=== PATIENT | male | born 1940 | race Caucasian/White ===

== ENCOUNTER 2019-01-05 12:02 | Emergency (ER) | payer MEDICARE, OTHER ==
--- NOTE | 2019-01-05 12:08 | PDOC ---
History of Present Illness - General Chief Complaint: Lightheaded Stated Complaint: LIGHTHEADED/DIZZINESS Time Seen by Provider: 01/05/19 12:07 History Source: Patient, Family Exam Limitations: No Limitations, Language Barrier (macedonian) - History of Present Illness Initial Comments: 01/05/19 12:38 Darin Izquierdo is a 78yM w PMHx HTN and constipation presenting with dizziness. Last night sudden onset lightheadedness and dizziness (room spinning) while lying in bed. Worse lying down vs sitting up. This morning measured high BP at home, took 1 BP medication. Last bowel movement yesterday. Denies alcohol, smoking. Denies fever, headache, vision change, nausea/vomiting, SOB, chest pain , urinary problems. Past History - Past Medical History Allergies/Adverse Reactions: Allergies Allergy/AdvReac Type Severity Reaction Status Date / Time No Known Allergies Allergy Verified 01/05/19 12:19 Home Medications: Ambulatory Orders Aspirin 81 mg PO DAILY 01/05/19 Losartan Potassium 50 mg PO DAILY 01/05/19 Meclizine HCl [Antivert -] 25 mg PO TID 7 Days #21 tablet 01/05/19 Metoprolol Succinate [Toprol Xl] 25 mg PO DAILY 01/05/19 Naproxen Sodium 550 mg PO BID 01/05/19 Review of Systems - Review of Systems Constitutional: No: Chills, Fever HEENTM: No: Eye Pain, Recent change in vision, Ear Pain, Nose Pain, Throat Pain , Mouth Pain Respiratory: No: Cough, Shortness of Breath Cardiac (ROS): No: Chest Pain, Edema, Palpitations, Syncope ABD/GI: Yes: Constipated. No: Abdominal Distended, Diarrhea, Nausea, Vomiting : No: Burning, Dysuria, Discharge, Flank Pain, Hematuria, Incontinence Musculoskeletal: No: Back Pain, Joint Pain, Muscle Pain, Muscle Weakness Integumentary: No: Bruising, Flushing, Lesions Neurological: Yes: Dizziness. No: Headache, Numbness, Paresthesia, Seizure, Tingling, Tremors, Unsteady Gait Psychiatric: No: Anxiety, Depression, Stressors Endocrine: No: Excessive Sweating, Flushing, Intolerance to Cold, Intolerance to Heat Hematologic/Lymphatic: No: Anemia, Blood Clots, Easy Bleeding *Physical Exam - Physical Exam General Appearance: Yes: Nourished, Appropriately Dressed. No: Apparent Distress HEENT: positive: EOMI, KEISHA, Hearing Grossly Normal. negative: Scleral Icterus (R), Scleral Icterus (L), Nasal Congestion, Rhinorrhea, TM Bulging, TM Dull, TM Erythema, Lesions, Mccain Respiratory/Chest: positive: Lungs Clear, Normal Breath Sounds. negative: Chest Tender, Respiratory Distress, Crackles, Rales, Rhonchi, Stridor, Wheezing Cardiovascular: positive: Regular Rhythm, Regular Rate, S1, S2. negative: Edema , Murmur Gastrointestinal/Abdominal: positive: Normal Bowel Sounds, Flat, Soft. negative : Tender, Organomegaly Musculoskeletal: positive: Normal Inspection Extremity: positive: Normal Capillary Refill Integumentary: positive: Normal Color Neurologic: positive: bunch breaker II-XII NML intact, Fully Oriented, Alert, Normal Mood/ Affect, Normal Response, Motor Strength 5/5, Respond to painful stimul, Responsive, Finger to Nose (normal), Other (negative saeid-hallpike, normal heel- brink, normal balance). negative: Facial Droop, Numbness, Sensory Deficit, Confused, Disoriented ED Treatment Course - LABORATORY CBC & Chemistry Diagram: 01/05/19 12:46 01/05/19 12:25 Medical Decision Making - Medical Decision Making 01/05/19 12:34 CBC CMP trop CXR EKG head CT 1L NS reglan meclizine EKG shows NSR with a PVC, HR 76, QTc 407, no ST changes CBC CMP normal neg trop head CT shows no acute bleed/infarct, chronic mild volume loss and possible ischemic disease changes, craniectomy changes. CXR clear lung ashley Darin Izquierdo is a 78yM w PMHx HTN and constipation presenting with dizziness. Lightheadedness likely d/t peripheral vertigo, consider past head trauma. Central vertigo (stroke) ruled out with no focal deficits, normal neural exam, normal cerebellar tests. Head CT shows no acute bleed/infarct, chronic mild volume loss and possible ischemic disease changes, craniectomy changes. CBC CMP normal, unlikely cardiogenic w NSR EKG and neg trop. Given 1L NS reglan meclizine w dizziness relief. D/c home w neuro referral and meclizine prescription for dizziness. *DC/Admit/Observation/Transfer Diagnosis at time of Disposition: Vertigo - Discharge Dispostion Disposition: HOME Condition at time of disposition: Improved Decision to Admit order: No - Prescriptions Prescriptions: Meclizine HCl [Antivert -] 25 mg PO TID 7 Days #21 tablet - Referrals Referrals: Will Blue MD [Primary Care Provider] - Ty Ramos MD [Staff Physician] - - Patient Instructions Printed Discharge Instructions: DI for Vertigo Additional Instructions: You were seen for dizziness. Your labs and imaging did not show anything concerning. You were given medication for your dizziness. Please make an appointment to see the referred neurologist Dr. Ramos about your dizziness and your primary care doctor for your high blood pressure early next week. Take your prescribed meclizine three times per day for dizziness. Drink lots of water Come back to the ED if you have worsening dizziness, headache, or continue vomiting. Te vieron por mareos. Nelly laboratorios e imgenes no mostraron nada preocupante. Le dieron medicamentos para paris mareo. Jud karley carleen para radha al neurlogo referido Dr. Ramos sobre nelly mareos y paris mdico de atencin primaria para la presin arterial moon a principios de la prxima semana. [place] paris meclizina prescrita carol veces al da para mareos. Beber shannan agua Regrese al servicio de urgencias si tiene mareos, dolor de james o vmitos que empeoran. Print Language: BENINESE - Post Discharge Activity
[2019-01-05 12:24] VITALS: BMI 32.9
[2019-01-05] MEDS ORDERED: METOCLOPRAMIDE HCL INJECTION 10 MG/2 ML VIAL IVPB ONE (12:25)
[2019-01-05] MEDS ORDERED: SODIUM CHLORIDE 0.9% 500 ML INFUS.BAG IV ONE (12:25)
[2019-01-05] MEDS ORDERED: METOCLOPRAMIDE HCL INJECTION 10 MG/2 ML VIAL ONE (12:28)
[2019-01-05] MEDS ORDERED: MECLIZINE HCL 25 MG TABLET (FP) PO ONE (12:30)
[2019-01-05 12:53] LABS: BASO % 0.7 % (0-2.0); EOS % 2.4 % (0-4.5); HEMATOCRIT 39.1 % (35.4-49); HEMOGLOBIN 13.8 GM/dL (11.7-16.9); LYMPH % 24.3 % (8-40); MCH 32.5 pg (25.7-33.7); MCHC 35.2 g/dl (32.0-35.9); MEAN CELL VOLUME 92.3 fl (80-96); MEAN PLT VOLUME 9.2 fl (7.5-11.1); MONO % 4.9 % (3.8-10.2); NEUT % 67.7 % (42.8-82.8); PLATELET COUNT 150 K/MM3 (134-434); RBC 4.24 M/mm3 (4.00-5.60); RDW 14.7 % (11.9-15.9)
[2019-01-05] MEDS ORDERED: MECLIZINE HCL 25 MG TABLET (FP) ONE (13:07)
[2019-01-05 13:24] LABS: ALBUMIN 3.8 g/dl (3.4-5.0); ALK PHOS 102 U/L (45-117); ANION GAP 4 MMOL/L (8-16); BILIRUBIN,TOTAL 0.6 mg/dL (0.2-1); BLOOD UREA NITROGEN 20.1 mg/dL (7-18); CHLORIDE 110 mmol/L (98-107); CO2 27 mmol/L (21-32); CREATININE 1.3 mg/dL (0.55-1.3); GLUCOSE,RANDOM 159 mg/dL (74-106); POTASSIUM 4.2 mmol/L (3.5-5.1); SGOT/AST 34 U/L (15-37); SGPT/ALT 37 U/L (13-61); SODIUM 141 mmol/L (136-145); TOT PROT 7.2 g/dl (6.4-8.2)
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
[2019-01-05 15:18] VITALS: BP 131/78; PULSE 61; TEMP 98.1
--- NOTE | 2019-01-07 07:14 | EKG ---
Test Reason : Blood Pressure : / mmHG Vent. Rate : 076 BPM Atrial Rate : 076 BPM P-R Int : 224 ms QRS Dur : 086 ms QT Int : 362 ms P-R-T Axes : 027 -14 027 degrees QTc Int : 407 ms SINUS RHYTHM WITH 1ST DEGREE A-V BLOCK WITH OCCASIONAL PREMATURE VENTRICULAR COMPLEXES OTHERWISE NORMAL ECG NO PREVIOUS ECGS AVAILABLE Confirmed by JOLIE TRUJILLO MD ([id number]) on 01/07/2019 7:14:32 AM Referred By: Confirmed By:JOLIE TRUJILLO MD
== END 2019-01-05 15:20 | disposition home or self-care (01) ==
LOC: JER 12:02
PROC: 3E033GC Introduction of Other Therapeutic Substance into Peripheral Vein, Percutaneous Approach (ICD-10-PCS; principal; 2019-01-05)
DX: R42 Dizziness and giddiness (principal); I10 Essential (primary) hypertension; K59.00 Constipation, unspecified; Z87.820 Personal history of traumatic brain injury
CPT/HCPCS: 36415; 70450-TC; 71046-TC-FY; 80053; 82550; 84484; 85025; 93005; 93010; 96374; 99283-25

== ENCOUNTER 2019-01-15 09:00 | Emergency (ER) | payer MEDICARE, OTHER ==
[2019-01-15 09:13] VITALS: BMI 34.5
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
--- NOTE | 2019-01-15 10:01 | EKG ---
Test Reason : Blood Pressure : / mmHG Vent. Rate : 057 BPM Atrial Rate : 057 BPM P-R Int : 264 ms QRS Dur : 100 ms QT Int : 394 ms P-R-T Axes : 036 -19 037 degrees QTc Int : 383 ms SINUS BRADYCARDIA WITH 1ST DEGREE A-V BLOCK OTHERWISE NORMAL ECG WHEN COMPARED WITH ECG OF 05-JAN-2019 12:19, PREMATURE VENTRICULAR COMPLEXES ARE NO LONGER PRESENT Confirmed by MD NARA, DELMIS ([id number]) on 01/15/2019 10:01:08 AM Referred By: Confirmed By:DELMIS BAINS MD
[2019-01-15] MEDS ORDERED: SODIUM CHLORIDE 1,000 ML IV ONE (10:20)
[2019-01-15] MEDS ORDERED: diazePAM 5 MG TABLET PO ONE (10:21)
[2019-01-15] MEDS ORDERED: METOCLOPRAMIDE HCL INJECTION 10 MG/2 ML VIAL IVPUSH ONE (10:21)
[2019-01-15] MEDS ORDERED: diazePAM 2 MG TABLET PO ONE (10:22)
[2019-01-15] MEDS ORDERED: METOCLOPRAMIDE HCL INJECTION 10 MG/2 ML VIAL ONE (10:47)
[2019-01-15] MEDS ORDERED: diazePAM 2 MG TABLET ONE (10:47)
[2019-01-15 11:04] LABS: URINE APPEARANCE CLEAR; URINE BILIRUBIN NEGATIVE (NEGATIVE); URINE COLOR YELLOW; URINE GLUCOSE (UA) NEGATIVE (NEGATIVE); URINE KETONE NEGATIVE (NEGATIVE); URINE LEUK ESTERASE NEGATIVE (NEGATIVE); URINE NITRITE NEGATIVE (NEGATIVE); URINE PROTEIN NEGATIVE (NEGATIVE); URINE UROBILINOGEN 0.2 mg/dL (0.2-1.0)
[2019-01-15 11:25] LABS: BASO % 0.7 % (0-2.0); EOS % 3.5 % (0-4.5); HEMATOCRIT 37.5 % (35.4-49); HEMOGLOBIN 13.3 GM/dL (11.7-16.9); LYMPH % 30.5 % (8-40); MCH 32.5 pg (25.7-33.7); MCHC 35.4 g/dl (32.0-35.9); MEAN CELL VOLUME 91.9 fl (80-96); MEAN PLT VOLUME 9.4 fl (7.5-11.1); MONO % 5.1 % (3.8-10.2); NEUT % 60.2 % (42.8-82.8); PLATELET COUNT 172 K/MM3 (134-434); RBC 4.08 M/mm3 (4.00-5.60); RDW 14.3 % (11.9-15.9); WHITE BLOOD COUNT 5.4 K/mm3 (4.0-10.0)
[2019-01-15 12:57] LABS: ALBUMIN 3.6 g/dl (3.4-5.0); ALK PHOS 102 U/L (45-117); ANION GAP 7 MMOL/L (8-16); BILIRUBIN,TOTAL 0.7 mg/dL (0.2-1); BLOOD UREA NITROGEN 19.1 mg/dL (7-18); CALCIUM 8.6 mg/dL (8.5-10.1); CHLORIDE 110 mmol/L (98-107); CO2 24 mmol/L (21-32); CREATININE 1.2 mg/dL (0.55-1.3); GLUCOSE,RANDOM 93 mg/dL (74-106); SGOT/AST 29 U/L (15-37); SGPT/ALT 33 U/L (13-61); SODIUM 141 mmol/L (136-145); TOT PROT 6.7 g/dl (6.4-8.2)
[2019-01-15 13:14] VITALS: BP 147/66; PULSE 69; TEMP 97.8
== END 2019-01-15 13:14 | disposition home or self-care (01) ==
LOC: JER 09:00
PROC: 3E0337Z Introduction of Electrolytic and Water Balance Substance into Peripheral Vein, Percutaneous Approach (ICD-10-PCS; principal; 2019-01-15)
PROC: 3E033GC Introduction of Other Therapeutic Substance into Peripheral Vein, Percutaneous Approach (ICD-10-PCS; 2019-01-15)
DX: R42 Dizziness and giddiness (principal); I10 Essential (primary) hypertension; Z87.820 Personal history of traumatic brain injury; Z98.890 Other specified postprocedural states
CPT/HCPCS: 36415; 80053; 81003; 82550; 84484; 85025; 93005; 93010; 96361; 96374; 99283-25; J7030

== ENCOUNTER 2019-03-07 11:48 | Observation (INO) | payer MEDICARE, OTHER ==
--- NOTE | 2019-03-07 12:03 | PDOC ---
History of Present Illness - General Chief Complaint: Eye Problem Stated Complaint: EYE/MOUTH SWELLING Time Seen by Provider: 03/07/19 12:03 History Source: Patient Exam Limitations: Language Barrier - History of Present Illness Initial Comments: HPI/ROS/PE performed with phone interviewer [id number]. 79 year old male with PMH HTN, vertigo, on ASA presented to ED for right sided mouth drooping since 0300 today, associated with right eye tearing/drooping yesterday at 0200. Pt reported both symptoms are still present. Pt admitted to bilateral blurry vision. Pt denied extremity numbness/tingling, extremity weakness, nausea, vomiting, room-spinning sensation, diarrhea, abdominal pain, back pain, neck pain, chest pain, shortness of breath, fever, gait changes. PCP: Su SCHNEIDER General: denied fever, chills, generalized weakness. HEENT: denied sore throat, rhinorrhea, ear pain. Cardiovascular: denied chest pain, palpitations, syncope, diaphoresis. Respiratory: denied shortness of breath, cough, sputum production, hemoptysis. Gastrointestinal: denied abdominal pain, nausea, vomiting, diarrhea, constipation, blood in stool. Genitourinary: denied dysuria, increased urinary frequency, hematuria, urinary incontinence, flank pain. Back: denied back pain. Musculoskeletal: denied joint pain, muscle pain, joint swelling. Neurological: admitted to facial drooping. denied headache, dizziness, numbness , tingling, weakness. Integumentary: denied rash, laceration, abrasion. Hematologic/Lymphatic: denied bruising or bleeding. PE Constitutional: Well-nourished, Well-developed, appearing stated age. HEENT: head is normocephalic, atraumatic. EOMI. PERRLA. Neck: supple. Full ROM. Cardiovascular: regular heart rhythm. no murmurs. no pericardial friction rub. Respiratory: clear to auscultation bilaterally. no crackles, rhonchi or wheezing. no stridor. Gastrointestinal: soft, nontender. normal bowel sounds. no rebound, guarding, masses. Extremities: peripheral pulses intact. no lower extremity edema. Neurological: alert. oriented x3. right sided upper and lower facial drooping. 5 /5 strength all extremities. full sensation all extremities and bilateral face. no ataxia. Psych: awake, alert, oriented x3. follows commands. answers questions appropriately. tPA Exclusion checklist 3-4.5h - Time Elapsed Date last known well: 03/06/19 Time last known well: 02:00 Elaspsed time: 1 Day(s) and 12 Hour(s) and 59 Minutes - Thrombolytic Therapy Candidate Is patient eligible for thrombolytic therapy: No - Exclusion Criteria 3-4.5 hr SBP greater than 185 or DBP greater than 110mmHg despite tx: No Recent IC/spinal surgery,head trauma or stroke<3mos.: No Hx IC hemorrhage, IC neoplasm, AV malformation or aneurysm: No Active internal bleeding: No Blding diathesis(low plt ct, inc PTT,INR>1.7 or use of NOAC): No Symptoms suggest subarachnoid hemorrhage: No CT demonstrates multilobar infarct(>1/3 cerebral hemiphere): No Arterial puncture at noncompressible site in previous 7 days: No Blood glucose concentration less than 50mg/dL (2.7mmol/L): No - Relative Exclusion Criteria 3-4.5 hr Life expectancy <1 yr or severe co-morbid illness: No : No Patient/family refused: No Rapid improvement: No Stroke severity too mild: No Recent acute IL (w/in previous 3 months): No Seizure at onset with postictal residual neuro impairments: No Major surgery or serious trauma w/in previous 14 days: No Recent GI or hemorrhage (w/in previous 21 days): No - Add'l Relative Exclusion 3-4.5 hr Age > 80: Yes Hx of both diabetes AND prior ischemic stroke: No Taking an oral anticoagulant regardless of INR: No NIHSS >25: No - Ineligibility reason(s) Reasons No tPA given: Outside of window - delayed arrival NIH Stroke Scale - Last Known Well Date/Time & Onset Date Last Known Well: 03/06/19 Time Last Known Well: 21:00 - Initial Evaluation Level of consciousness: Alert Ask patient the month and their age: Answers both correctly Ask patient to open & close eyes; make fist and let go: Obeys both correctly Best gaze (horizontal eye movement): Normal Visual field testing: No visual field loss Facial paresis (Show teeth/raise eyebrows/close eyes tight): Partial paralysis ( total or near paralysis of lower face) Motor Function: Left Arm: Normal Motor Function: Right Arm: Normal (extends arm 90 (or 45) degrees for 10 seconds without drift Motor Function: Left Leg: Normal (extends leg 30 degrees for 5 seconds without drift) Motor Function: Right Leg: Normal (extends leg 30 degrees for 5 seconds without drift) Limb Ataxia: No ataxia Sensory(Use pinprick test arms,legs,trunk,face/side to side): Normal Best language (Describe picture, name items, read sentences): Mild to moderate aphasia Dysarthria (read several words): Mild to moderate slurring of words Extinction and Inattention: No abnormality - Total Score NIH Stroke Scale Score: 4 Past History - Past Medical History Allergies/Adverse Reactions: Allergies Allergy/AdvReac Type Severity Reaction Status Date / Time No Known Allergies Allergy Verified 03/07/19 11:55 Home Medications: Ambulatory Orders Aspirin 81 mg PO DAILY 01/05/19 Losartan Potassium 50 mg PO DAILY 01/05/19 Metoprolol Succinate [Toprol Xl] 25 mg PO DAILY 01/05/19 Naproxen Sodium 550 mg PO BID 01/05/19 Omeprazole 40 mg PO DAILY 01/15/19 Meclizine HCl [Antivert -] 25 mg PO BID 03/07/19 - Psycho Social/Smoking Cessation Hx Smoking History: Never smoked Hx Alcohol Use: No Drug/Substance Use Hx: No *Physical Exam - Vital Signs Last Vital Signs Temp Pulse Resp BP Pulse Ox 98.7 F 74 18 129/84 98 03/07/19 11:49 03/07/19 11:49 03/07/19 11:49 03/07/19 11:49 03/07/19 11:49 ED Treatment Course - LABORATORY CBC & Chemistry Diagram: 03/07/19 12:57 03/07/19 12:57 Medical Decision Making - Medical Decision Making 79 year old male with above PMH presented to ED for right sided upper facial drooping since 0200 yesterday, progressing to lower facial drooping 0300 today. Initial Vital Signs Temp Pulse Resp BP Pulse Ox 98.7 F 74 18 129/84 98 03/07/19 11:49 03/07/19 11:49 03/07/19 11:49 03/07/19 11:49 03/07/19 11:49 Afebrile. No tachycardia. No tachypnea. Normal BP. No hypoxia on room air. Clinically concerning for CVA, Stroke Code called and pt taked to CT. Would not give tPA as symptoms have been ongoing >24 hours. Labs ordered: CBC, CMP, coags, T&S, lipids, mag, phos, cardiac profile Imaging ordered: CT head noncontrast, CXR Medications ordered: none POC Glucose 132 EKG performed at 1311: rate 69, regular rhythm, normal axis, [place] 222, first degree AV block, no acute ST changes. CXR report: [facility] Phys: Jayjay Valentine MD : 1940 Age: 79 Sex: M [facility] Acct: [id number] Loc: [address] Exam Date: 03/07/19 Status: [facility] [place] [address] Unit Number: [id number] EXAM#: TYPE/EXAM: RESULT: RAD/CHEST X-RAY PORTABLE* Chest: Stroke. A single AP view of the chest reveals clear lungs, prominent mediastinum and sharp angles. There is a slight scoliosis with convexity to the right. Angles are sharp and the soft tissues are intact. Since 01/05/2019 there is no change of an adverse nature. Impression: No acute chest pathology. Reported By: Will Casarez MD 03/07/19 1338 03/07/19 13:13 CT head report: [facility] Phys: Jayjay Valentine MD : 1940 Age: 79 Sex: M [facility] Acct: [id number] Loc: [address] Exam Date: 03/07/19 [facility] [address] Unit Number: [id number] EXAM#: TYPE/EXAM: RESULT: CT/HEAD CT (STROKE) ADDENDUM ADDENDUM #1 Addendum: Case discussed with Dr. Jayjay Valentine, emergency room caring attending physician ORIGINAL REPORT Rule out stroke CT scan of the head without intravenous contrast Compared to prior CT scan of the head dated 01/05/2019 and prior MRI of the brain dated 10/26/2015 Encephalomalacia is again seen in the left frontal lobe, anteriorly/superiorly with small dystrophic calcifications and exvacuodilatation of the left lateral ventricle, anteriorly/ superiorly. Patient is status post left frontal craniectomy. There is hbuh-yf-mupkrqiy volume loss and ventricular dilatation. No gross mass lesion, acute infarct or intracranial hemorrhage are identified. Mild deviation of the nasal septum towards the left. Visualized paranasal sinuses and mastoid air cells are well aerated IMPRESSION: Status post left frontal craniectomy with encephalomalacia again seen at the site of surgery involving the left frontal lobe, anteriorly/superiorly with tiny dystrophic calcifications present. Ex vacuo dilatation of the left lateral ventricle, anteriorly/superiorly again seen. Xupb-lp-ntucrxmz volume loss. No gross acute infarct is identified. Correlate clinically to determine further evaluation and follow-up. Reported By: Vadmi Gan MD 03/07/[address] scan of the head without intravenous contrast Compared to prior CT scan of the head dated 01/05/2019 and prior MRI of the brain dated 10/26/2015 Encephalomalacia is again seen in the left frontal lobe, anteriorly/superiorly with small dystrophic calcifications and exvacuodilatation of the left lateral ventricle, anteriorly/ superiorly. Patient is status post left frontal craniectomy. There is ddcm-rm-dfyvtckg volume loss and ventricular dilatation. No gross mass lesion , acute infarct or intracranial hemorrhage are identified. Mild deviation of the nasal septum towards the left. Visualized paranasal sinuses and mastoid air cells are well aerated IMPRESSION: Status post left frontal craniectomy with encephalomalacia again seen at the site of surgery involving the left frontal lobe, anteriorly/superiorly with tiny dystrophic calcifications present. Ex vacuo dilatation of the left lateral ventricle, anteriorly/superiorly again seen. Zzin-ju-wnwilwtq volume loss. No gross acute infarct is identified. Correlate clinically to determine further evaluation and follow-up. Reported By : Vadim Gan MD 03/07/19 6441 Neuro paged. 03/07/19 13:22 CBC WBC 5.8 K/mm3 (4.0-10.0) 03/07/19 12:57 RBC 4.10 M/mm3 (4.00-5.60) 03/07/19 12:57 Hgb 13.5 GM/dL (11.7-16.9) 03/07/19 12:57 Hct 37.8 % (35.4-49) 03/07/19 12:57 MCV 92.1 fl (80-96) 03/07/19 12:57 MCH 32.9 pg (25.7-33.7) 03/07/19 12:57 MCHC 35.8 g/dl (32.0-35.9) 03/07/19 12:57 RDW 14.2 % (11.9-15.9) 03/07/19 12:57 Plt Count 204 K/MM3 (134-434) 03/07/19 12:57 MPV 9.1 fl (7.5-11.1) 03/07/19 12:57 Absolute Neuts (auto) 3.7 K/mm3 (1.5-8.0) 03/07/19 12:57 Neutrophils % 64.4 % (42.8-82.8) 03/07/19 12:57 Lymphocytes % 25.6 % (8-40) 03/07/19 12:57 Monocytes % 7.2 % (3.8-10.2) 03/07/19 12:57 Eosinophils % 1.9 % (0-4.5) 03/07/19 12:57 Basophils % 0.9 % (0-2.0) 03/07/19 12:57 Nucleated RBC % 0 % (0-0) 03/07/19 12:57 No leukocytosis. No anemia. 03/07/19 14:04 CMP Sodium 136 mmol/L (136-145) 03/07/19 12:57 Potassium 4.8 mmol/L (3.5-5.1) 03/07/19 12:57 Chloride 106 mmol/L (98-107) 03/07/19 12:57 Carbon Dioxide 23 mmol/L (21-32) 03/07/19 12:57 Anion Gap 7 MMOL/L (8-16) L 03/07/19 12:57 BUN 20.7 mg/dL (7-18) H 03/07/19 12:57 Creatinine 1.3 mg/dL (0.55-1.3) 03/07/19 12:57 Est GFR (CKD-EPI)AfAm 59.73 03/07/19 12:57 Est GFR (CKD-EPI)NonAf 51.53 03/07/19 12:57 POC Glucometer 132 UNITS (80-120) 03/07/19 13:26 Random Glucose 123 mg/dL (74-106) H 03/07/19 12:57 Calcium 8.9 mg/dL (8.5-10.1) 03/07/19 12:57 Phosphorus 2.9 mg/dL (2.5-4.9) 03/07/19 12:57 Magnesium 1.9 mg/dL (1.8-2.4) 03/07/19 12:57 Total Bilirubin 0.6 mg/dL (0.2-1) 03/07/19 12:57 AST 39 U/L (15-37) H 03/07/19 12:57 ALT 37 U/L (13-61) 03/07/19 12:57 Alkaline Phosphatase 98 U/L (45-117) 03/07/19 12:57 Creatine Kinase 141 U/L (26-308) 03/07/19 12:57 Troponin I < 0.02 ng/ml (0.00-0.05) 03/07/19 12:57 Total Protein 7.0 g/dl (6.4-8.2) 03/07/19 12:57 Albumin 4.0 g/dl (3.4-5.0) 03/07/19 12:57 Triglycerides 403 mg/dL (0-150) H 03/07/19 12:57 Cholesterol 197 mg/dL (50-200) 03/07/19 12:57 Total LDL Cholesterol 127 mg/dL (5-100) H 03/07/19 12:57 HDL Cholesterol 31 mg/dL (40-60) L 03/07/19 12:57 No electrolyte abnormalities. No CORINNA, Cr at baseline. Troponin undetectable. Elevated triglycerides, LDL. Low HDL. 03/07/19 14:46 Dr. Domingo recommended admission, Routine MRI, ASA 324 mg PO chew once. Hold Lipitor. 03/07/19 14:[address] Bhagat, who agreed with plan for care. Pt to be admitted. Discharge - Discharge Information Problems reviewed: Yes Clinical Impression/Diagnosis: Facial droop, CVA (cerebral vascular accident) Condition: Guarded - Admission Yes - Follow up/Referral - Patient Discharge Instructions - Post Discharge Activity
[2019-03-07] MEDS ORDERED: SODIUM CHLORIDE 1,000 ML IV SCH (12:45)
[2019-03-07 13:20] LABS: BASO % 0.9 % (0-2.0); EOS % 1.9 % (0-4.5); HEMATOCRIT 37.8 % (35.4-49); HEMOGLOBIN 13.5 GM/dL (11.7-16.9); LYMPH % 25.6 % (8-40); MCH 32.9 pg (25.7-33.7); MCHC 35.8 g/dl (32.0-35.9); MEAN CELL VOLUME 92.1 fl (80-96); MEAN PLT VOLUME 9.1 fl (7.5-11.1); MONO % 7.2 % (3.8-10.2); NEUT % 64.4 % (42.8-82.8); PLATELET COUNT 204 K/MM3 (134-434); RDW 14.2 % (11.9-15.9); WHITE BLOOD COUNT 5.8 K/mm3 (4.0-10.0)
[2019-03-07 13:30] LABS: INR 1.11 (0.83-1.09); PROTHROMBIN TIME (PATIENT) 13.1 SEC (9.7-13.0)
[2019-03-07 13:33] LABS: ACTIVATED PTT 30.3 SECONDS (25.2-36.5)
[2019-03-07 13:56] LABS: BILIRUBIN,TOTAL 0.6 mg/dL (0.2-1); BLOOD UREA NITROGEN 20.7 mg/dL (7-18); CALCIUM 8.9 mg/dL (8.5-10.1); CREATININE 1.3 mg/dL (0.55-1.3); MAGNESIUM 1.9 mg/dL (1.8-2.4); PHOSPHOROUS 2.9 mg/dL (2.5-4.9); POTASSIUM 4.8 mmol/L (3.5-5.1)
--- NOTE | 2019-03-07 14:16 | PDOC ---
Documentation entered by Ronn Butler SCRIBE, acting as scribe for Jayjay Valentine MD. Jayjay Valentine MD: This documentation has been prepared by the Luke miller Nirvannie, SCRIBE, under my direction and personally reviewed by me in its entirety. I confirm that the documentation accurately reflects all work, treatment, procedures, and medical decision making performed by me. Attending Attestation - Resident Resident Name: Merly Larios - ED Attending Attestation I have performed the following: I have examined & evaluated the patient, The case was reviewed & discussed with the resident, I agree w/resident's findings & plan - HPI HPI: 03/07/19 13:07 The patient is an 79 year old male, with a significant past medical history of HTN (on Aspirin) and vertigo, who presents to the emergency department with 10 hours (3AM) of a right facial droop with associated 11 hours (2AM) of tearing with associated blurred vision. Pt also states he feels like his voice is "not right." While in the ED, patient notes the symptoms to be persistent. He denies any dizziness. He denies any recent chest pain or shortness of breath. He denies any recent fevers, chills, lightheadedness, or dizziness. He denies any recent nausea, vomiting, diarrhea or constipation. He denies any recent dysuria, frequency, urgency or hematuria. Allergies: NKDA - Physicial Exam PE: 03/07/19 14:14 Agree with resident exam - Medical Decision Making 03/07/19 14:14 79-year-old male presents emergency department with 10 hours of facial droop associated with change in speech and blurry vision. On exam patient has a right-sided facial droop with forehead involvement and mild to moderate aphasia (patient had difficulty explaining the content in the NIH stroke scale pictures) Differential includes CVA versus TIA versus Rivas's palsy. Stroke work-up has been initiated. Patient is outside of the TPA window. Anticipate admission. Heart Score/ECG Review #1 03/07/19 14:16 Twelve-lead EKG was performed and reviewed by me. Sinus rhythm with first- degree AV block. Normal axis. No ST elevations or T wave inversions.
[2019-03-07] MEDS ORDERED: ASPIRIN 81 MG CHEWABLE TABLETS PO ONE (14:46)
--- NOTE | 2019-03-07 15:01 | EKG ---
Test Reason : Blood Pressure : / mmHG Vent. Rate : 069 BPM Atrial Rate : 069 BPM P-R Int : 222 ms QRS Dur : 090 ms QT Int : 372 ms P-R-T Axes : 031 -26 041 degrees QTc Int : 398 ms SINUS RHYTHM WITH 1ST DEGREE A-V BLOCK OTHERWISE NORMAL ECG WHEN COMPARED WITH ECG OF 15-JAN-2019 09:18, NO SIGNIFICANT CHANGE WAS FOUND Confirmed by SANTIAGO VAZQUEZ, ELSY ([id number]) on 03/07/2019 3:01:04 PM Referred By: Confirmed By:ELSY HENDERSON MD
[2019-03-07] MEDS ORDERED: ASPIRIN 81 MG CHEWABLE TABLETS ONE (15:09)
[2019-03-07 15:12] LABS: PH,URINE 5.5 (5.0-8.0); URINE APPEARANCE CLEAR; URINE BILIRUBIN NEGATIVE (NEGATIVE); URINE COLOR YELLOW; URINE GLUCOSE (UA) NEGATIVE (NEGATIVE); URINE KETONE NEGATIVE (NEGATIVE); URINE LEUK ESTERASE NEGATIVE (NEGATIVE); URINE NITRITE NEGATIVE (NEGATIVE); URINE PROTEIN NEGATIVE (NEGATIVE); URINE UROBILINOGEN 0.2 mg/dL (0.2-1.0)
--- NOTE | 2019-03-07 15:30 | HP ---
Admitting History and Physical - Admission Chief Complaint: came in for droppy eye and face History of Present Illness: The patient is an 79 year old male, with a significant past medical history of HTN (on Aspirin) and vertigo, who presents to the emergency department with 10 hours (3AM) of a right facial droop with associated 11 hours (2AM) of tearing with associated blurred vision. Pt also states he feels like his voice is "not right." While in the ED, patient notes the symptoms to be persistent. He denies any dizziness. He denies any recent chest pain or shortness of breath. He denies any recent fevers, chills, lightheadedness, or dizziness. He denies any recent nausea, vomiting, diarrhea or constipation. He denies any recent dysuria, frequency, urgency or hematuria. patient in the ER head CT no infarct History Source: Medical Record - Past Medical History Cardiovascular: Yes: HTN - Smoking History Smoking history: Never smoked - Alcohol/Substance Use Hx Alcohol Use: No Home Medications - Allergies Allergies/Adverse Reactions: Allergies Allergy/AdvReac Type Severity Reaction Status Date / Time No Known Allergies Allergy Verified 03/07/19 11:55 - Home Medications Home Medications: Ambulatory Orders Aspirin 81 mg PO DAILY 01/05/19 Losartan Potassium 50 mg PO DAILY 01/05/19 Metoprolol Succinate [Toprol Xl] 25 mg PO DAILY 01/05/19 Naproxen Sodium 550 mg PO BID 01/05/19 Omeprazole 40 mg PO DAILY 01/15/19 Meclizine HCl [Antivert -] 25 mg PO BID 03/07/19 Review of Systems - Review of Systems Neck: reports: No Symptoms Cardiovascular: reports: No Symptoms Respiratory: reports: No Symptoms Physical Examination Vital Signs: Vital Signs Temperature 98.7 F 03/07/19 11:49 Pulse Rate 65 03/07/19 15:00 Respiratory Rate 14 03/07/19 15:00 Blood Pressure 133/79 03/07/19 15:00 O2 Sat by Pulse Oximetry (%) 97 03/07/19 15:00 Constitutional: Yes: Calm Cardiovascular: Yes: Regular Rate and Rhythm, S1, S2 Respiratory: Yes: CTA Bilaterally Gastrointestinal: Yes: Normal Bowel Sounds, Soft Neurological: Yes: Facial Droop Labs: CBC, BMP 03/07/19 12:57 03/07/19 12:57 Imaging - Results Cat Scan: Report Reviewed Problem List - Problems (1) CVA (cerebral vascular accident) Assessment/Plan: neurocheck neurconsult MRI of brain and neck statin aspirinmeclizine prnc scd for dvt ppx PT eval Code(s): I63.9 - CEREBRAL INFARCTION, UNSPECIFIED
--- NOTE | 2019-03-07 21:52 | CON.NEURO ---
Consult Consult Specialty:: NEUROLOGY-LISBET VAZQUEZ - History of Present Illness History of Present Illness: The patient is an 79 year old male, with a significant past medical history of HTN (on Aspirin) and vertigo, who presents to the emergency department with 10 hours (3AM) of a right facial droop with associated 11 hours (2AM) of tearing with associated blurred vision. Pt also states he feels like his voice is "not right." While in the ED, patient notes the symptoms to be persistent. He denies any dizziness. He denies any recent chest pain or shortness of breath. He denies any recent fevers, chills, lightheadedness, or dizziness. He denies any recent nausea, vomiting, diarrhea or constipation. He denies any recent dysuria, frequency, urgency or hematuria. patient in the ER head CT no infarct -Reports only right angle of mouth drooling, denies retroauricular pain, denies fever. - Past Medical History Cardio/Vascular: Yes: HTN - Alcohol/Substance Use Hx Alcohol Use: No - Smoking History Smoking history: Never smoked Home Medications - Allergies Allergies/Adverse Reactions: Allergies Allergy/AdvReac Type Severity Reaction Status Date / Time No Known Allergies Allergy Verified 03/07/19 11:55 - Home Medications Home Medications: Ambulatory Orders Aspirin 81 mg PO DAILY 01/05/19 Losartan Potassium 50 mg PO DAILY 01/05/19 Metoprolol Succinate [Toprol Xl] 25 mg PO DAILY 01/05/19 Naproxen Sodium 550 mg PO BID 01/05/19 Omeprazole 40 mg PO DAILY 01/15/19 Meclizine HCl [Antivert -] 25 mg PO BID 03/07/19 Physical Exam-Neuro Vital Signs: Vital Signs Temperature 98.1 F 03/07/19 18:40 Pulse Rate 69 03/07/19 18:59 Respiratory Rate 15 03/07/19 18:59 Blood Pressure 157/79 03/07/19 18:59 O2 Sat by Pulse Oximetry (%) 96 03/07/19 18:40 Labs: CBC, BMP 03/07/19 12:57 03/07/19 12:57 INR, PTT INR 1.11 (0.83-1.09) H 03/07/19 12:57 - Neuro Exam Level Of Consciousness: Yes: Alert, Oriented to Person, Oriented to Place, Oriented to Time Eyes: Yes: PERRL Speech: WNL Dominant Hand: Right Mini Mental Exam: Nl Cranial Nerves II-XII Intact: No (Slight right peripheral facial palsy-weakness of angularis/orbicularis, unable to close eye completely) DTR's: 0 Left Achilles, 0 Right Achilles, 2+ Left Bicep, 2+ Right Bicep, 2+ Left Tricep, 2+ Right Tricep, 2+ Left Brachioradialis, 2+ Right Brachioradialis Babinski: Absent Motor Strength: 5/5: Left Arm, Right Arm, Left Leg, Right Leg Imaging - Results Cat Scan: Report Reviewed (Left frontal craniotomy/encephalomalacia reported only) Assessment/Plan Pt. with right facial deficit but does not have the usual accompaniements of a [place]-retroauricular pain and face tingling-this is still likley Rivas's but may represent a brain stem ischemic event. Await MRI brain, cont ASA 81mg daily, MRA neck requested. Thank you, Henrik Domingo MD
[2019-03-07] MEDS: OMEGA-3 ACID ETHYL ESTERS (FATTY-ACIDS) 1 GM CAPSULE (FP) PO SCH (21:57)
[2019-03-07 22:59] VITALS: BMI 34.4
[2019-03-08 06:49] LABS: HEMATOCRIT 35.2 % (35.4-49); HEMOGLOBIN 12.6 GM/dL (11.7-16.9); MCH 32.7 pg (25.7-33.7); MCHC 35.7 g/dl (32.0-35.9); MEAN CELL VOLUME 91.4 fl (80-96); MEAN PLT VOLUME 8.7 fl (7.5-11.1); PLATELET COUNT 167 K/MM3 (134-434); RBC 3.85 M/mm3 (4.00-5.60); RDW 13.9 % (11.9-15.9); WHITE BLOOD COUNT 5.3 K/mm3 (4.0-10.0)
[2019-03-08 07:26] LABS: ALBUMIN 3.7 g/dl (3.4-5.0); ALK PHOS 77 U/L (45-117); ANION GAP 5 MMOL/L (8-16); BILIRUBIN,TOTAL 0.4 mg/dL (0.2-1); BLOOD UREA NITROGEN 18.2 mg/dL (7-18); CALCIUM 8.4 mg/dL (8.5-10.1); CHLORIDE 108 mmol/L (98-107); CO2 25 mmol/L (21-32); CREATININE 1.2 mg/dL (0.55-1.3); GLUCOSE,RANDOM 94 mg/dL (74-106); MAGNESIUM 1.9 mg/dL (1.8-2.4); PHOSPHOROUS 3.9 mg/dL (2.5-4.9); POTASSIUM 4.4 mmol/L (3.5-5.1); SGOT/AST 20 U/L (15-37); SGPT/ALT 33 U/L (13-61); SODIUM 138 mmol/L (136-145); TOT PROT 6.3 g/dl (6.4-8.2)
[2019-03-08] MEDS ORDERED: metoPROLOL SUCCINATE 25 MG TAB.SR.24H (FP) PO SCH (10:00)
[2019-03-08] MEDS ORDERED: ASPIRIN 81 MG CHEWABLE TABLETS PO SCH (10:00)
[2019-03-08] MEDS: OMEGA-3 ACID ETHYL ESTERS (FATTY-ACIDS) 1 GM CAPSULE (FP) PO SCH (10:41)
--- NOTE | 2019-03-08 11:59 | CONSULT ---
Admitting History and Physical - Primary Care Physician PCP: Shannon Bhagat - Admission History of Present Illness: The patient is an 79 year old male, with a significant past medical history of HTN (on Aspirin) and vertigo, who presents to the emergency department with 10 hours (3AM) of a right facial droop with associated 11 hours (2AM) of tearing with associated blurred vision. CT head/MRI (-) stroke Pt presents with right facial weakness and difficulty closing right eye. r/o Rivas's Palsy History Source: Patient, Family Member, Medical Record Limitations to Obtaining History: No Limitations, Language Barrier (oracle soa consultant used) - Past Medical History Cardiovascular: Yes: HTN - Smoking History Smoking history: Never smoked - Alcohol/Substance Use Hx Alcohol Use: No History - Admission Reason For Visit: EYE/MOUTH SWELLING - Diagnostics X-ray: Report Reviewed CT Scan: Report Reviewed MRI: Report Reviewed - General Mental Status: Alert and Oriented, Awake and Alert, Able to Follow Commands Attention: Intact Ability to Follow Directions: Excellent Head/Neck Control: WFL - Hearing Hearing: Normal Speech Evaluation - Communication Primary Language: BULGARIAN Communication: Yes: Within Normal Limits Oral Expression Ability: Yes: No Impairment - Speech Production Able to Make Needs Known: Yes: WNL Intelligibility: Yes: WNL - Speech Characteristics Voice Loudness: Normal Voice Pitch: Yes: Normal Voice Phonatory-based Quality: Yes: Normal Speech Pattern: Normal Speech Clarity: < 100% Nasal Resonance: Normal Articulation: Yes: Precise Rate of Speech: Intact - Language/Auditory Comprehension Follows: Yes: 2 Stage Simple Commands - Language/Verbal Expression Able to Respond to Simple Queries: Yes: WNL Able to Communicate Wants and Needs: Yes: WNL Functional Communication Status: Yes: WNL - 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: WNL Short Term Memory: Yes: WNL - Swallow Evaluation/Bedside Assessment Current Nutritional Intake: NPO Oral Secretions: Yes: WFL, Drooling Dentition: Yes: Adequate Facial Symmetry at Rest: Facial Droop Right Facial Symmetry on Retraction: Facial Droop Right Jaw Position: Closed at Rest Pucker Lips: Droops Right Smile: Droops Right Lingual Movement: Symmetric Lingual Speed of Movement: Normal Lingual Movement Strgth Against Opposition: Normal Velopharyngeal Movement: Normal Laryngeal Elevation: WFL Laryngeal Movement: Able to Palpate Rate of Intake: WFL Bolus Size: WFL Labial Seal: Impaired Right (slight anterior spillage on right side, when drinking from cup) Chewing: WFL Oral Prep Time: WFL A-P Transit: WFL Pocketing: None Timing of Swallow: WFL Coughing/Throat Clear: No Change in Voice: No Recommendations - Speech Evaluation, Impression/Plan Impression: Pt presents with right facial weakness and difficulty closing right eye. r/o Rivas's Palsy. Speech/language/cognition/swallowing intact. Difficulty closing right eye with mild redness, blurred vision, r/o dryness- medical mgmt-eg patch at night, moistening drops. - Dysphagia Impressions/Plan Swallowing Skills: WF Dysphagia Impressions: No Impairment *Silent aspiration: cannot be R/O at bedside Dysphagia Treatment Plan: Small Bites, Clear Pocket Food, Safe Rate, 1/2 tsp. at a time, OOB for meals, OOB for 1 h. after meals Recommendations: Neuro Consult (f/u) - Recommendations Diet Consistency: Regular (soft, swmall bites, chew carefully on left) Medication Administration: Whole with water Liquids: Thin Liquids (use straw)
[2019-03-08 14:24] VITALS: BP 135/75; PULSE 62; TEMP 97.8
--- NOTE | 2019-03-08 14:41 | DS ---
Physical Examination Vital Signs: Vital Signs Temperature 97.8 F 03/08/19 14:24 Pulse Rate 62 03/08/19 14:24 Respiratory Rate 18 03/08/19 14:24 Blood Pressure 135/75 03/08/19 14:24 O2 Sat by Pulse Oximetry (%) 98 03/07/19 19:40 patient lying in bed no distress Constitutional: Yes: Calm Cardiovascular: Yes: Regular Rate and Rhythm, S1, S2 Respiratory: Yes: CTA Bilaterally Gastrointestinal: Yes: Normal Bowel Sounds, Soft Edema: No Labs: CBC, BMP 03/08/19 05:40 03/08/19 05:40 Discharge Summary Problems reviewed: Yes Reason For Visit: EYE/MOUTH SWELLING Current Active Problems CVA (cerebral vascular accident) (Acute) Facial droop (Acute) Other Procedures: MRI no acute infarct chronic encephalomalacia. MRA no significant stenosis Hospital Course: The patient is an 79 year old male, with a significant past medical history of HTN (on Aspirin) and vertigo, who presents to the emergency department with 10 hours (3AM) of a right facial droop with associated 11 hours (2AM) of tearing with associated blurred vision. Pt also states he feels like his voice is "not right." While in the ED, patient notes the symptoms to be persistent. He denies any dizziness. He denies any recent chest pain or shortness of breath. He denies any recent fevers, chills, lightheadedness, or dizziness. He denies any recent nausea, vomiting, diarrhea or constipation. He denies any recent dysuria, frequency, urgency or hematuria. patient in the ER head CT no infarct Condition: Guarded - Instructions Referrals: Will Blue MD [Non Staff, Medical] - 1 Week Disposition: HOME - Home Medications Comprehensive Discharge Medication List: Ambulatory Orders Aspirin 81 mg PO DAILY 01/05/19 Losartan Potassium 50 mg PO DAILY 01/05/19 Metoprolol Succinate [Toprol Xl] 25 mg PO DAILY 01/05/19 Naproxen Sodium 550 mg PO BID 01/05/19 Omeprazole 40 mg PO DAILY 01/15/19 Meclizine HCl [Antivert -] 25 mg PO BID 03/07/19
[2019-03-08] MEDS ORDERED: ROSUVASTATIN CA 10 MG TABLET (FP) PO SCH (22:00)
== END 2019-03-08 17:03 | disposition home or self-care (01) ==
LOC: JER 11:48 → JERBED 14:05 → UNDOADMOB 14:05 → INTOOBSV 14:05 → J4W 18:52 → JERBED 18:52 → J4W 03-08 14:15
PROVIDERS: ADMIT Student in an Organized Health Care Education/Training Program; ATTEND Student in an Organized Health Care Education/Training Program
PROC: 3E0337Z Introduction of Electrolytic and Water Balance Substance into Peripheral Vein, Percutaneous Approach (ICD-10-PCS; principal; 2019-03-08)
DX: R29.810 Facial weakness (principal); I10 Essential (primary) hypertension; Z79.82 Long term (current) use of aspirin; G93.89 Other specified disorders of brain
CPT/HCPCS: 36415; 70450-TC; 70547-TC; 70551-TC; 71045-TC-FY; 80053; 81003; 82465; 82550; 82962; 83036; 83718; 83721; 83735; 84100; 84478; 84484; 85025; 85027; 85610; 85730; 86850; 86900; 86901; 93005; 93010; 99285-25; G0378; J7030